=== PATIENT | female | born 1985 | race Caucasian/White ===

== ENCOUNTER → 2019-12-05 | Outpatient (CLI) | payer BC ==
[~2019-12-05] MED LIST: CLON0.252 PO; DULO60CA6 PO
--- NOTE | 2019-12-05 12:52 | Diagnostic Imaging Report ---
INDICATION: Right breast pain. Patient has breast implants. Sonographic interrogation of all 4 quadrants as well as retroareolar region and right axilla was performed. No sonographic abnormality is seen. No solid or cystic masses detected. IMPRESSION: BI-RADS Category 1 No significant abnormality is seen. Continued clinical followup is recommended. If symptoms persist, consideration could be given to performance of a diagnostic mammogram and/or MRI of the breasts. ACR BI-RADS Category 1: Negative. Result letter will be mailed to the patient. Note: At least 10% of breast cancer is not imaged by mammography. Dictated by: Dictated on workstation # [id number]
== END ==
LOC: RAD 11:46
PROVIDERS: ATTEND Nurse Practitioner Family
DX: N64.4 Mastodynia (principal); Z98.82 Breast implant status
CPT/HCPCS: 76641